=== PATIENT | female | born 1980 | race Two or more races ===

== ENCOUNTER 2024-01-19 11:12 | Emergency (ER) | payer MEDICAID ==
[~2024-01-19] VITALS: Ht 170.2 cm; Wt 87.3 kg
[2024-01-19 12:15] LABS: BASOPHILS # (AUTO) 0.1 X10'3 (0-0.2); BASOPHILS % (AUTO) 1.2 % (0-1); EOSINOPHILS # (AUTO) 0.1 X10'3 (0-0.9); EOSINOPHILS % (AUTO) 1.3 % (0-6); HEMATOCRIT 34.2 % (35.0-45.0); HEMOGLOBIN 10.9 g/dl (12.0-16.0); LYMPHOCYTES # (AUTO) 1.5 X10'3 (1.1-4.8); MEAN CORPUSCULAR HEMOGLOBIN 21.6 PG (27.0-31.0); MEAN CORPUSCULAR HGB CONC 31.8 g/dL (33.0-36.5); MEAN CORPUSCULAR VOLUME 67.9 FL (78-98); MEAN PLATELET VOLUME 6.7 FL (7.4-10.4); MONOCYTES # (AUTO) 0.5 X10'3 (0-0.9); MONOCYTES % (AUTO) 7.6 % (2-12); NEUTROPHILS # (AUTO) 3.9 X10'3 (1.8-7.7); NEUTROPHILS % (AUTO) 64.9 % (42-75); PLATELET COUNT 397 X10'3 (140-440); RED BLOOD COUNT 5.03 X10'6 (4.20-5.60); RED CELL DISTRIBUTION WIDTH 19.1 % (11.5-14.5)
[2024-01-19 12:24] LABS: APTT 29 SECONDS (22-32); INR 1.1 INR; PROTHROMBIN TIME 11.4 SECONDS (9.0-12.0)
[2024-01-19 12:26] LABS: ALANINE AMINOTRANSFERASE 24 U/L (12-78); ALKALINE PHOSPHATASE 78 IU/L (46-116); ANION GAP 8 (8-16); ASPARTATE AMINO TRANSFERASE 18 U/L (10-37); BILIRUBIN,TOTAL 0.3 MG/DL (0.1-1.0); BLOOD UREA NITROGEN 11 MG/DL (7-18); BUN/CREATININE RATIO 17.2 (10.0-20.0); CALCIUM 8.4 MG/DL (8.5-10.1); CHLORIDE 104 MMOL/L (99-107); CREATININE 0.64 MG/DL (0.40-0.90); GLUCOSE 96 MG/DL (70-104); POTASSIUM 4.2 MMOL/L (3.5-5.1); SODIUM 139 MMOL/L (135-145); TOTAL CARBON DIOXIDE 26.9 MMOL/L (24-32); TOTAL PROTEIN 8.2 G/DL (6.4-8.2); eCRCL 112 ML/MIN; eGFR > 90 ML/MIN
[2024-01-19 12:37] LABS: PLATELET ESTIMATE NORMAL
[2024-01-19 12:38] LABS: ANISOCYTOSIS 2+; BURR CELLS FEW; ELLIPTOCYTES FEW; HYPOCHROMASIA 1+; MICROCYTOSIS 2+; TARGET CELLS FEW
[2024-01-19 12:47] LABS: HCG SERUM QL NEGATIVE
[2024-01-19] MEDS: diphenhydrAMINE 50 mg/ml inj IM ONE (13:00)
[2024-01-19] MEDS: metoclopramide 5 mg/ml inj IV ONE (13:00)
[2024-01-19] MEDS: meclizine 12.5mg tablet PO ONE (14:51)
[2024-01-19] MEDS: LORazepam 1 MG tablet PO ONE (14:52)
[2024-01-19] MEDS ORDERED: MECL-302 PO (15:13)
[2024-01-19] MEDS ORDERED: ONDA4TAB12 PO (15:52)
[2024-01-19 15:58] VITALS: BP 155/99; PULSE 75; RESP 14; TEMP 97.9; O2SAT 100
== END 2024-01-19 16:02 | disposition home or self-care (01) ==
LOC: ER 11:12
DX: G43.909 Migraine, unspecified, not intractable, without status migrainosus (principal); R42 Dizziness and giddiness; R79.1 Abnormal coagulation profile; Z88.6 Allergy status to analgesic agent; Z79.899 Other long term (current) drug therapy
CPT/HCPCS: 70450; 80053; 84703; 85008; 85025; 85610; 85730; 96372; 96374; 99285; J1200; J2765; J8597

== ENCOUNTER 2024-07-20 22:18 | Emergency (ER) | payer MEDICAID ==
[~2024-07-20] VITALS: Ht 175.3 cm; Wt 90.9 kg
[~2024-07-20 22:18] MED LIST: MECL-302 PO; ONDA-243 PO
[2024-07-21 00:35] VITALS: TEMP 98
[2024-07-21] MEDS ORDERED: LOSA-415 PO (00:38)
[2024-07-21] MEDS: normal saline 1000ml 1,000 ML IV ONE (01:31)
[2024-07-21] MEDS: proCHLORperazine 10 MG/2 ml inj IV ONE (01:31)
[2024-07-21] MEDS: acetaminophen 1,000mg/100ml IV 100 ML IV ONE (01:31)
[2024-07-21 02:30] VITALS: BP 170/96; PULSE 88; RESP 17; O2SAT 98
== END 2024-07-21 03:19 | disposition home or self-care (01) ==
LOC: ER 22:18
DX: G43.909 Migraine, unspecified, not intractable, without status migrainosus (principal); Z88.6 Allergy status to analgesic agent; Z79.899 Other long term (current) drug therapy
CPT/HCPCS: 93005; 96374; 96375; 99285; J0131; J0780; J7030

== ENCOUNTER 2024-10-27 23:26 | Emergency (ER) | payer MEDICAID ==
[~2024-10-27] VITALS: Ht 170.2 cm; Wt 89.3 kg
[~2024-10-27 23:26] MED LIST changes: +LOSA-415 PO; -MECL-302 PO; -ONDA-243 PO
[2024-10-27 23:30] VITALS: BP 151/82; PULSE 90; RESP 16; O2SAT 99
[2024-10-28] MEDS ORDERED: HYDR-3965 PO (01:40)
[2024-10-28 01:42] VITALS: TEMP 97.7
== END 2024-10-28 01:42 | disposition home or self-care (01) ==
LOC: ER 23:26
DX: M79.671 Pain in right foot (principal); M79.672 Pain in left foot; G43.909 Migraine, unspecified, not intractable, without status migrainosus; Z88.6 Allergy status to analgesic agent; Z79.899 Other long term (current) drug therapy
CPT/HCPCS: 99283

== ENCOUNTER 2024-12-23 06:18 | Outpatient (CLI) | payer MEDICAID | END 2024-12-23 23:59 | disposition home or self-care (01) | LOC: MRI02 06:18 | PROVIDERS: ATTEND Physician Assistant Surgical | DX: M77.32 Calcaneal spur, left foot (principal); M72.2 Plantar fascial fibromatosis; M25.475 Effusion, left foot; M79.672 Pain in left foot; M84.374A Stress fracture, right foot, initial encounter for fracture; M79.671 Pain in right foot | CPT/HCPCS: 73718 ==